=== PATIENT | male | born 1935 | race Caucasian/White ===

== ENCOUNTER 2019-05-16 11:10 | Emergency (ER) | payer BC ==
--- NOTE | 2019-05-16 11:26 | ED ---
General Adult HPI - General Chief complaint: Weakness Stated complaint: Weakness Time Seen by Provider: 05/16/19 11:14 - History of Present Illness Initial comments: Patient is an 83-year-old male presents via EMS with a chief complaint of dysarthria and right-sided weakness. Onset was a half hour ago. Per EMS family states that he was normal just prior to the onset of the symptoms. On arrival, EMS states that his symptoms have improved since initial contact. 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 He is a former smoker but quit smoking in the 60s. Patient states she's never had a stroke or a TIA in the past. He does not take any blood thinners. - Related Data Home Medications Medication Instructions Recorded Confirmed Finasteride [Proscar] 5 mg PO DAILY 05/16/19 05/16/19 Latanoprost [Xalatan 0.005%] 1 drop BOTH EYES HS 05/16/19 05/16/19 Metoprolol Succinate [Toprol Xl] 50 mg PO DAILY 05/16/19 05/16/19 Pravastatin Sodium [Pravachol] 40 mg PO HS 05/16/19 05/16/19 Ranitidine HCl [Zantac] 150 mg PO BID 05/16/19 05/16/19 Allergies Allergy/AdvReac Type Severity Reaction Status Date / Time No Known Allergies Allergy Verified 05/16/19 11:38 Review of Systems ROS Statement: Those systems with pertinent positive or pertinent negative responses have been documented in the HPI. ROS Other: All systems not noted in ROS Statement are negative. Neurological: Reports: weakness General Exam Limitations: no limitations General appearance: alert, in no apparent distress Head exam: Present: atraumatic, normocephalic Eye exam: Present: normal appearance, PERRL, EOMI. Absent: nystagmus ENT exam: Present: normal exam, normal oropharynx, mucous membranes moist Neck exam: Present: normal inspection Respiratory exam: Present: normal lung sounds bilaterally. Absent: respiratory distress, wheezes Cardiovascular Exam: Present: regular rate, normal rhythm GI/Abdominal exam: Present: soft. Absent: distended, tenderness Rectal exam: Present: deferred Extremities exam: Present: normal inspection. Absent: pedal edema, calf tenderness Back exam: Present: normal inspection Neurological exam: Present: alert, oriented X3. Absent: motor sensory deficit Expanded Neurological exam: Present: protecting the airway. Absent: inattentive, receptive aphasia, expressive aphasia Patient oriented to: Present: person, place, time Speech: Present: fluid speech Cranial nerves: EOM's Intact: Normal, Tongue Deviation: Normal, Nystagmus: Normal, Facial Sensation: Normal, Facial Palsy with Forehead Movement: Abnormal Left Cerebellar function: Finger to Nose: Normal, Heel to Bobby: Normal Upper motor neuron: Eliezer Neglect: Normal, Pronator Drift: Normal, Sensory Extinction: Normal Sensory exam: Upper Extremity Light Touch: Normal, Lower Extremity Light Touch: Normal Motor strength exam: RUE: 5, LUE: 5, RLE: 4, LLE: 5 Eye Response: (4) open spontaneously Motor Response: (6) obeys commands Verbal Response: (5) oriented Osiel Total: 15 Psychiatric exam: Present: normal affect, normal mood Skin exam: Present: warm, dry, intact Course Vital Signs 05/16/19 05/16/19 05/16/19 11:10 11:15 11:30 Temperature 97.8 F Pulse Rate 67 67 68 Respiratory 16 18 16 Rate Blood Pressure 140/71 140/71 124/66 O2 Sat by Pulse 100 100 98 Oximetry 05/16/19 05/16/19 05/16/19 11:45 12:00 12:15 Temperature Pulse Rate 58 L 60 66 Respiratory 18 16 18 Rate Blood Pressure 115/79 116/78 135/65 O2 Sat by Pulse 98 98 100 Oximetry 05/16/19 05/16/19 12:30 12:45 Temperature Pulse Rate 62 54 L Respiratory 18 18 Rate Blood Pressure 139/84 141/68 O2 Sat by Pulse 99 99 Oximetry Medical Decision Making - Medical Decision Making Patient presents with a chief complaint of strokelike symptoms. On initial evaluation, vital signs are stable, patient is in no acute distress. Initial NIH stroke scale is 2. It is reported by EMS that this is a vast improvement from initial contact. Favor TIA at this time. Code stroke called on arrival ( 11:21 am). Patient will be evaluated with CT of the head noncontrast, and the CTA of the head and neck. Basic labs including cardiac enzymes were drawn. Blood glucose is 92. We'll obtain EKG. Given the rapid improvement of the patient's symptoms since onset, I do not believe that he is tPA candidate at this time. We'll monitor for clinical change. 11:52 AM EKG performed at 1120 shows shows normal sinus rhythm with a rate of 64 bpm, segs are within normal limits, no acute signs of ischemia. 12:21 PM Patient returned from CT scan, now with expressive aphasia. I spoke with Dr. Finley again and at this point myself, Dr. Finley and the patient and family are agreeable with TPA. His only relative contraindication is his age. risks and benefits explained at length, patient and family agreeable. 1:12 PM Lab evaluation this patient is unremarkable. I discussed the CT angiogram with Dr. Escalante who states that there is findings suggestive of a left MCA stroke which is consistent with patient's presentation. Case again discussed with Dr. Martinez who is agreeable with TPA. Patient given initial bolus remained stable. Case discussed with Dr. [facility] at [facility] who accepts transfer of this patient. CT perfusion study will be ordered on arrival. Patient stable for transfer at this time. NIH Stroke Scale/Score (NIHSS) from [email or web address] on 05/16/2019 All calculations should be rechecked by clinician prior to use First NIHSS RESULT SUMMARY: 2 points NIH Stroke Scale INPUTS: 1A: Level of consciousness > 0 = Alert; keenly responsive 1B: Ask month and age > 0 = Both questions right 1C: 'Blink eyes' & 'squeeze hands' > 0 = Performs both tasks 2: Horizontal extraocular movements > 0 = Normal 3: Visual florian > 0 = No visual loss 4: Facial palsy > 1 = Minor paralysis (flat nasolabial fold, smile asymmetry) 5A: Left arm motor drift > 0 = No drift for 10 seconds 5B: Right arm motor drift > 0 = No drift for 10 seconds 6A: Left leg motor drift > 0 = No drift for 5 seconds 6B: Right leg motor drift > 1 = Drift, but doesn't hit bed 7: Limb Ataxia > 0 = No ataxia 8: Sensation > 0 = Normal; no sensory loss 9: Language/aphasia > 0 = Normal; no aphasia 10: Dysarthria > 0 = Normal 11: Extinction/inattention > 0 = No abnormality Second NIHSS RESULT SUMMARY: 4 points NIH Stroke Scale INPUTS: 1A: Level of consciousness > 0 = Alert; keenly responsive 1B: Ask month and age > 0 = Both questions right 1C: 'Blink eyes' & 'squeeze hands' > 0 = Performs both tasks 2: Horizontal extraocular movements > 0 = Normal 3: Visual florian > 0 = No visual loss 4: Facial palsy > 1 = Minor paralysis (flat nasolabial fold, smile asymmetry) 5A: Left arm motor drift > 0 = No drift for 10 seconds 5B: Right arm motor drift > 0 = No drift for 10 seconds 6A: Left leg motor drift > 0 = No drift for 5 seconds 6B: Right leg motor drift > 1 = Drift, but doesn't hit bed 7: Limb Ataxia > 0 = No ataxia 8: Sensation > 0 = Normal; no sensory loss 9: Language/aphasia > 2 = Severe aphasia: fragmentary expression, inference needed, cannot identify materials 10: Dysarthria > 0 = Normal 11: Extinction/inattention > 0 = No abnormality - Lab Data Result diagrams: 05/16/19 11:23 05/16/19 11:23 Lab Results 05/16/19 05/16/19 05/16/19 Range/Units 11:14 11:23 11:23 WBC 7.7 (3.8-10.6) k/uL RBC 5.11 (4.30-5.90) m/uL Hgb 14.5 (13.0-17.5) gm/dL Hct 45.1 (39.0-53.0) % MCV 88.3 (80.0-100.0) fL MCH 28.4 (25.0-35.0) pg MCHC 32.1 (31.0-37.0) g/dL RDW 13.5 (11.5-15.5) % Plt Count 262 (150-450) k/uL Neutrophils % 61 % Lymphocytes % 27 % Monocytes % 6 % Eosinophils % 2 % Basophils % 1 % Neutrophils # 4.8 (1.3-7.7) k/uL Lymphocytes # 2.1 (1.0-4.8) k/uL Monocytes # 0.5 (0-1.0) k/uL Eosinophils # 0.1 (0-0.7) k/uL Basophils # 0.0 (0-0.2) k/uL PT (9.0-12.0) sec INR (<1.2) Sodium 141 (137-145) mmol/L Potassium 4.3 (3.5-5.1) mmol/L Chloride 104 (98-107) mmol/L Carbon Dioxide 28 (22-30) mmol/L Anion Gap 9 mmol/L BUN 15 (9-20) mg/dL Creatinine 1.14 (0.66-1.25) mg/dL Est GFR (CKD-EPI)AfAm 68 (>60 ml/min/1.73 sqM) Est GFR (CKD-EPI)NonAf 59 (>60 ml/min/1.73 sqM) Glucose 99 (74-99) mg/dL POC Glucose (mg/dL) 92 (75-99) mg/dL POC Glu Photography Instructor ID Porfirio Alonso Calcium 9.5 (8.4-10.2) mg/dL Total Bilirubin 0.5 (0.2-1.3) mg/dL AST 27 (17-59) U/L ALT 17 L (21-72) U/L Alkaline Phosphatase 61 (38-126) U/L Troponin I (0.000-0.034) ng/mL Total Protein 7.3 (6.3-8.2) g/dL Albumin 4.3 (3.5-5.0) g/dL Urine Color Urine Appearance (Clear) Urine pH (5.0-8.0) Ur Specific [place] (1.001-1.035) Urine Protein (Negative) Urine Glucose (UA) (Negative) Urine Ketones (Negative) Urine Blood (Negative) Urine Nitrite (Negative) Urine Bilirubin (Negative) Urine Urobilinogen (<2.0) mg/dL Ur Leukocyte Esterase (Negative) 05/16/19 05/16/19 05/16/19 Range/Units 11:23 11:23 12:25 WBC (3.8-10.6) k/uL RBC (4.30-5.90) m/uL Hgb (13.0-17.5) gm/dL Hct (39.0-53.0) % MCV (80.0-100.0) fL MCH (25.0-35.0) pg MCHC (31.0-37.0) g/dL RDW (11.5-15.5) % Plt Count (150-450) k/uL Neutrophils % % Lymphocytes % % Monocytes % % Eosinophils % % Basophils % % Neutrophils # (1.3-7.7) k/uL Lymphocytes # (1.0-4.8) k/uL Monocytes # (0-1.0) k/uL Eosinophils # (0-0.7) k/uL Basophils # (0-0.2) k/uL PT 10.3 (9.0-12.0) sec INR 1.0 (<1.2) Sodium (137-145) mmol/L Potassium (3.5-5.1) mmol/L Chloride (98-107) mmol/L Carbon Dioxide (22-30) mmol/L Anion Gap mmol/L BUN (9-20) mg/dL Creatinine (0.66-1.25) mg/dL Est GFR (CKD-EPI)AfAm (>60 ml/min/1.73 sqM) Est GFR (CKD-EPI)NonAf (>60 ml/min/1.73 sqM) Glucose (74-99) mg/dL POC Glucose (mg/dL) (75-99) mg/dL POC Glu Photography Instructor ID Calcium (8.4-10.2) mg/dL Total Bilirubin (0.2-1.3) mg/dL AST (17-59) U/L ALT (21-72) U/L Alkaline Phosphatase (38-126) U/L Troponin I <0.012 (0.000-0.034) ng/mL Total Protein (6.3-8.2) g/dL Albumin (3.5-5.0) g/dL Urine Color Light Yellow Urine Appearance Clear (Clear) Urine pH 7.0 (5.0-8.0) Ur Specific [place] 1.013 (1.001-1.035) Urine Protein Negative (Negative) Urine Glucose (UA) Negative (Negative) Urine Ketones Negative (Negative) Urine Blood Negative (Negative) Urine Nitrite Negative (Negative) Urine Bilirubin Negative (Negative) Urine Urobilinogen <2.0 (<2.0) mg/dL Ur Leukocyte Esterase Negative (Negative) Critical Care Time Critical Care Time: Yes Total Critical Care Time: 60 (min) Critical Care Time: Provided 60 minutes of critical care time for this patient including initial evaluation, diagnosis, review of images, administration of TPA, and frequent reevaluation's. Orders transfer to higher level of care. Critical care time was exclusive of other care provided. Disposition Clinical Impression: Stroke, Expressive aphasia Disposition: OTHER INSTITUTION NOT DEFINED Condition: Critical Is patient prescribed a controlled substance at d/c from ED?: No Referrals: None,Stated [REFERRING] - 1-2 days - Out of Hospital Transfer - Req. Specs Out of Hospital Transfer - Requested Specifics: Other Emergency Center ([facility])
[2019-05-16 11:31] LABS: Glucose,Whole Blood 92 mg/dL (75-99)
[2019-05-16 11:39] LABS: Basophils % (A) 1 %; Eosinophils # (A) 0.1 k/uL (0-0.7); Eosinophils % (A) 2 %; HCT 45.1 % (39.0-53.0); HGB 14.5 gm/dL (13.0-17.5); Lymphocytes # (A) 2.1 k/uL (1.0-4.8); Lymphocytes % (A) 27 %; MCH 28.4 pg (25.0-35.0); MCHC 32.1 g/dL (31.0-37.0); MCV 88.3 fL (80.0-100.0); Monocytes # (A) 0.5 k/uL (0-1.0); Monocytes % (A) 6 %; Neutrophils # (A) 4.8 k/uL (1.3-7.7); Neutrophils % (A) 61 %; Platelet Count 262 k/uL (150-450); RBC 5.11 m/uL (4.30-5.90); RDW 13.5 % (11.5-15.5); WBC 7.7 k/uL (3.8-10.6)
[2019-05-16 11:49] LABS: Prothrombin Time 10.3 sec (9.0-12.0)
[2019-05-16 11:50] LABS: Albumin 4.3 g/dL (3.5-5.0); Calcium 9.5 mg/dL (8.4-10.2); Potassium 4.3 mmol/L (3.5-5.1); Total Bilirubin 0.5 mg/dL (0.2-1.3); Total Protein 7.3 g/dL (6.3-8.2)
--- NOTE | 2019-05-16 12:05 | CT ---
EXAMINATION TYPE: CT brain wo con for TPA DATE OF EXAM: 05/16/2019 COMPARISON: NONE HISTORY: Slurred speech, Lt facial droop CT DLP: 1012.7 mGycm Automated exposure control for dose reduction was used. FINDINGS: Generalized changes of sulcal prominence and ventriculomegaly, compatible with atrophic change. There is diffuse periventricular white matter lucency, compatible small vessel ischemic change. No acute f ocal lesion, mass effect or midline shift is identified. I do not see evidence of intracranial blood. Visualized portions of the paranasal sinuses and mastoids are clear. The bony calvarium is intact. IMPRESSION: 1. NO ACUTE INTRACRANIAL ABNORMALITY. 2. DEGENERATIVE CHANGE.
[2019-05-16] MEDS ORDERED: ALTEPLASE BOLUS 5 MG in EMPTY SYRINGE 1 SYR IV STA (12:10)
[2019-05-16] MEDS ORDERED: ALTEPLASE 46 MG in EMPTY BAG 1 BAG IV STA (12:10)
[2019-05-16] MEDS ORDERED: tPA (Alteplase) PER PHARMACY 1 EACH MISC MISCELLANE PRN (12:11)
--- NOTE | 2019-05-16 12:34 | CT ---
EXAMINATION TYPE: CODE STROKE: CTA head neck DATE OF EXAM: 05/16/2019 HISTORY: Lt facial droop, slurred speech COMPARISON: None. CT DLP: 230.3 mGycm. Automated Exposure Control for Dose Reduction was Utilized. TECHNIQUE: CTA scan of the neck is performed with IV Contrast, patient injected with 50 mL of Isovue 370, axial images are obtained, coronal and sagittal reformatted images are reviewed. Three-D recons tructed images are created on an independent workstation and reviewed. FINDINGS: There are are mild emphysematous changes within the lungs. Prevertebral soft tissues are no rmal. Vertebral body height and alignment are maintained.0 atlantoaxial relationships are normal. There is degenerative disc disease with disc space loss and uncovertebral joint disease throughout th e cervical spine with relative sparing of C2-3 and C3-4. There is only mild atheromatous calcification of the carotid bulbs, slightly greater on the right naya n the left. There is a normal origin of the great vessels. The left vertebral artery is dominant. There is no sig nificant stenosis in either carotid system. MRA of the [place] demonstrates both posterior communicating arteries to be patent. The ante rior communicating artery is patent. There is truncation of the branch vessels of the left MCA. Both anterior cerebral arteries are patent. Both posterior cerebral arteries are patent. No sizable aneury sm is seen. IMPRESSION: 1. NO SIGNIFICANT STENOSIS IN EITHER CAROTID SYSTEM. 2. IMPROVING OF THE BRANCH VESSELS OF THE LEFT MCA COMPATIBLE WITH A LEFT MCA INFARCT.
--- NOTE | 2019-05-16 12:39 | XR ---
EXAMINATION TYPE: XR chest 1V portable DATE OF EXAM: 05/16/2019 HISTORY: Pain. REFERENCE: NONE. FINDINGS: There are senescent changes throughout the lungs. I do not see superimposed pneumonia or ed ten. The heart is not enlarged. Pleural spaces are clear. IMPRESSION: NO ACUTE INTRATHORACIC ABNORMALITY.
[2019-05-16 12:51] LABS: Appearance,Urine Clear (Clear); Bilirubin,Urine Negative (Negative); Blood,Urine Negative (Negative); Color,Urine Light Yellow; Glucose,Urine (UA) Negative (Negative); Ketones,Urine Negative (Negative); Leukocyte Esterase,Urine Negative (Negative); Nitrite,Urine Negative (Negative); Protein,Urine Negative (Negative); Specific Gravity,Urine 1.013 (1.001-1.035); Urobilinogen,Urine <2.0 mg/dL (<2.0)
[2019-05-16 13:19] VITALS: BP 121/84; PULSE 56; RESP 16; TEMP 97.9
== END 2019-05-16 13:11 | disposition other institution (70) ==
LOC: EC 11:10
DX: I63.9 Cerebral infarction, unspecified (principal); R47.01 Aphasia; R29.702 NIHSS score 2; I10 Essential (primary) hypertension; E78.00 Pure hypercholesterolemia, unspecified; Z87.891 Personal history of nicotine dependence; Z79.899 Other long term (current) drug therapy; Z95.5 Presence of coronary angioplasty implant and graft
CPT/HCPCS: 36415; 93005; 80053; 84484; 85025; 85610; 81003; 71045; 70496; 70450; 70498; 99291; 37195; J2997; Q9967

== ENCOUNTER → 2019-06-08 | Outpatient (CLI) | payer BC ==
--- NOTE | 2019-06-08 12:51 | CT ---
EXAMINATION TYPE: CT brain wo con DATE OF EXAM: 06/08/2019 HISTORY: Follow up CVA per patient. CT DLP: 1072.3 mGycm. Automated Exposure Control for Dose Reduction was Utilized. TECHNIQUE: CT scan of the head is performed without contrast. COMPARISON: CT brain May 16, 2019 FINDINGS: There is no acute intracranial hemorrhage or midline shift identified. There is diffuse v entricular and sulcal prominence consistent with diffuse age-related cerebral atrophy. There is low- attenuation in the periventricular white matter consistent with chronic small vessel ischemic change. The globes are intact and the visualized sinuses are clear. Patchy soft tissue density bilateral external auditory canals is felt to reflect cerumen. IMPRESSION: No acute intracranial hemorrhage or midline shift. There is moderate diffuse age-relate d cerebral atrophy and chronic small vessel ischemic change redemonstrated. No significant change fr om prior.
== END | disposition home or self-care (01) ==
LOC: RADCTMAIN 12:07
PROVIDERS: ATTEND Psychiatry & Neurology Vascular Neurology
DX: G31.1 Senile degeneration of brain, not elsewhere classified (principal); I67.82 Cerebral ischemia
CPT/HCPCS: 70450